=== PATIENT | female | born 1975 | race Caucasian/White ===

== ENCOUNTER 2023-01-06 08:06 | Emergency (ER) | payer MEDICAID, MEDICARE ==
[~2023-01-06] VITALS: Ht 154.9 cm; Wt 75.0 kg
[2023-01-06 08:34] VITALS: BP 141/78
[2023-01-06] MEDS ORDERED: [UNRECOGNIZED DRUG - CODE] PO (09:36)
[2023-01-06 09:52] LABS: BASOPHILS % (AUTO) 0.2 % (0-1); HEMATOCRIT 39.7 % (35.0-45.0); HEMOGLOBIN 13.1 g/dl (12.0-16.0); LYMPHOCYTES # (AUTO) 1.6 X10'3 (1.1-4.8); LYMPHOCYTES % (AUTO) 33.5 % (21-51); MEAN CORPUSCULAR HEMOGLOBIN 27.8 PG (27.0-31.0); MEAN CORPUSCULAR VOLUME 84.4 FL (78-98); MEAN PLATELET VOLUME 8.7 FL (7.4-10.4); MONOCYTES # (AUTO) 0.4 X10'3 (0-0.9); MONOCYTES % (AUTO) 8.3 % (2-12); NEUTROPHILS # (AUTO) 2.8 X10'3 (1.8-7.7); PLATELET COUNT 197 X10'3 (140-440); RED BLOOD COUNT 4.71 X10'6 (4.20-5.60); RED CELL DISTRIBUTION WIDTH 13.9 % (11.5-14.5); WHITE BLOOD COUNT 4.8 X10'3 (4.5-11.0)
[2023-01-06 10:17] LABS: ALANINE AMINOTRANSFERASE 25 U/L (12-78); ALBUMIN 3.8 G/DL (3.4-5.0); ALBUMIN/GLOBULIN RATIO 1.2 (1.1-1.5); ALKALINE PHOSPHATASE 104 IU/L (46-116); ANION GAP 6 (8-16); ASPARTATE AMINO TRANSFERASE 14 U/L (10-37); BILIRUBIN,TOTAL 0.7 MG/DL (0.1-1.0); BLOOD UREA NITROGEN 13 MG/DL (7-18); BUN/CREATININE RATIO 16.5 (10.0-20.0); CALCIUM 8.9 MG/DL (8.5-10.1); CHLORIDE 105 MMOL/L (99-107); CREATININE 0.79 MG/DL (0.40-0.90); GLUCOSE 94 MG/DL (70-104); MAGNESIUM 2.1 MG/DL (1.5-2.4); POTASSIUM 3.6 MMOL/L (3.5-5.1); SODIUM 141 MMOL/L (135-145); TOTAL PROTEIN 7.1 G/DL (6.4-8.2); eGFR 78 ML/MIN
[2023-01-06 10:44] LABS: HEMOGLOBIN A1C 5.2 % (4.5-6.2)
== END 2023-01-06 10:49 | disposition home or self-care (01) ==
LOC: ER 08:06
DX: E16.2 Hypoglycemia, unspecified (principal); Z90.49 Acquired absence of other specified parts of digestive tract
CPT/HCPCS: 36415; 80053; 82948; 83036; 83735; 85025; 99283

== ENCOUNTER 2024-05-21 13:24 | Emergency (ER) | payer MEDICAID, OTHER ==
[~2024-05-21] VITALS: Ht 154.9 cm; Wt 70.5 kg
[~2024-05-21 13:24] MED LIST: [UNRECOGNIZED DRUG - CODE] PO
[2024-05-21 15:31] VITALS: BP 122/80; PULSE 70; RESP 16; TEMP 98.2; O2SAT 97
== END 2024-05-21 15:33 | disposition home or self-care (01) ==
LOC: ER 13:24
DX: S00.83XA Contusion of other part of head, initial encounter (principal); S60.222A Contusion of left hand, initial encounter; S80.02XA Contusion of left knee, initial encounter; S09.8XXA Other specified injuries of head, initial encounter; Z90.710 Acquired absence of both cervix and uterus; Z72.89 Other problems related to lifestyle; Z98.890 Other specified postprocedural states; W18.39XA Other fall on same level, initial encounter; Y93.89 Activity, other specified; Y92.89 Other specified places as the place of occurrence of the external cause; Y99.0 Civilian activity done for income or pay
CPT/HCPCS: 73130; 73564; 99284